=== PATIENT | female | born 1935 | race Two or more races ===

== ENCOUNTER 2020-01-04 07:51 | Outpatient (CLI) | payer OTHER | END 2020-01-04 07:57 | disposition home or self-care (01) | LOC: EDBD 07:51 → NUCLEAR 07:51 | PROVIDERS: ATTEND Internal Medicine Cardiovascular Disease | DX: I11.9 Hypertensive heart disease without heart failure (principal); E78.01 Familial hypercholesterolemia; E11.40 Type 2 diabetes mellitus with diabetic neuropathy, unspecified; I20.8 Other forms of angina pectoris | CPT/HCPCS: 78452; 93017; A9500 ==

== ENCOUNTER 2021-12-17 07:10 | Outpatient (CLI) | payer OTHER | END 2021-12-17 07:11 | disposition home or self-care (01) | LOC: NUCLEAR 07:10 | PROVIDERS: ATTEND Internal Medicine Cardiovascular Disease | DX: I20.9 Angina pectoris, unspecified (principal); R07.89 Other chest pain | CPT/HCPCS: 78452; 93017; A9500; J0153 ==